=== PATIENT | female | born 1995 | race Caucasian/White ===

== ENCOUNTER 2018-09-11 04:45 | Emergency (ER) | payer OTHER ==
[~2018-09-11] VITALS: Wt 74.2 kg
[~2018-09-11 04:45] MED LIST: BACTDS PO; CEPH500C PO
--- NOTE | 2018-09-11 06:54 | ERD ---
ER Documentation Chief Complaint Chief Complaint states been smoking a lot of meth, c/o throat bleeding, "i need surgery" HPI This is a 23-year-old who states that she smoked too much meth last night. She states that she is with Kar baby. She says that there is some pus in her neck that needs to be cut out. She is very tangential but is denying suicidal or homicidal ideation. The patient states she smokes meth every day. She is asking me if I can get her something for her baby, like some juice. ROS All systems reviewed and are negative except as per history of present illness. Medications Home Meds Reported Medications Cephalexin* (Cephalexin*) 500 Mg Capsule, 500 MG PO TID, CAP 02/20/14 Sulfamethoxazole-Trimethoprim* (Bactrim* DS) 800-160 Mg Tab, 1 TAB PO BID, TAB 02/20/14 Allergies Allergies: Coded Allergies: No Known Allergy (Unverified , 09/11/18) PMhx/Soc Medical and Surgical Hx: pt denies Medical Hx, pt denies Surgical Hx Hx Alcohol Use: No Hx Substance Use: Yes (meth) Hx Tobacco Use: Yes Smoking Status: Never smoker FmHx Family History: No coronary disease Physical Exam Vitals Vital Signs Date Temp Pulse Resp B/P (MAP) Pulse Ox O2 O2 Flow FiO2 Time Delivery Rate 09/11/18 119 17 131/74 100 Room Air 07:32 (93) 09/11/18 114 17 132/74 100 Room Air 07:15 (93) 09/11/18 98.5 130 22 123/72 99 Room Air 06:01 (89) 09/11/18 98.5 128 22 131/71 99 Room Air 05:24 (91) 09/11/18 98.5 156 22 130/77 99 04:52 (94) Physical Exam Const: No acute distress, restless Head: Atraumatic Eyes: Normal Conjunctiva ENT: Normal External Ears, Nose and Mouth., Missing teeth Neck: Full range of motion. No meningismus. Resp: Clear to auscultation bilaterally Cardio: Tachycardia, no murmurs Abd: Soft, non tender, non distended. Normal bowel sounds Skin: No petechiae or rashes Back: No midline or flank tenderness Ext: No cyanosis, or edema Neur: Awake and alert Psych: Patient is psychotic and delusional Result Diagram: 4/21/19 0550 09/11/18 0550 Results 24 hrs Laboratory Tests Test 09/11/18 05:50 09/11/18 05:57 White Blood Count 16.4 10^3/ul Red Blood Count 4.35 10^6/ul Hemoglobin 12.3 g/dl Hematocrit 35.6 % Mean Corpuscular Volume 81.8 fl Mean Corpuscular Hemoglobin 28.3 pg Mean Corpuscular Hemoglobin Concent 34.6 g/dl Red Cell Distribution Width 13.3 % Platelet Count 292 10^3/UL Mean Platelet Volume 9.5 fl Immature Granulocytes % 0.500 % Neutrophils % 79.1 % Lymphocytes % 9.3 % Monocytes % 10.7 % Eosinophils % 0.1 % Basophils % 0.3 % Nucleated Red Blood Cells % 0.0 /100WBC Immature Granulocytes # 0.080 10^3/ul Neutrophils # 13.0 10^3/ul Lymphocytes # 1.5 10^3/ul Monocytes # 1.8 10^3/ul Eosinophils # 0.0 10^3/ul Basophils # 0.1 10^3/ul Nucleated Red Blood Cells # 0.0 10^3/ul Sodium Level 135 mmol/L Potassium Level 3.3 mmol/L Chloride Level 105 mmol/L Carbon Dioxide Level 19 mmol/L Anion Gap 11 Blood Urea Nitrogen 11 mg/dl Creatinine 0.75 mg/dl Est Glomerular Filtrat Rate mL/min > 60 mL/min Glucose Level 137 mg/dl Calcium Level 9.6 mg/dl Total Bilirubin 1.0 mg/dl Direct Bilirubin 0.00 mg/dl Indirect Bilirubin 1.0 mg/dl Aspartate Amino Transf (AST/SGOT) 51 IU/L Alanine Aminotransferase (ALT/SGPT) 31 IU/L Alkaline Phosphatase 65 IU/L Total Protein 7.7 g/dl Albumin 4.4 g/dl Globulin 3.30 g/dl Albumin/Globulin Ratio 1.33 Salicylates Level < 1.0 mg/dl Urine Opiates Screen Negative Acetaminophen Level < 10.0 ug/ml Urine Barbiturates Negative Urine Amphetamines Screen POSITIVE Urine Benzodiazepines Screen Negative Urine Cocaine Screen Negative Urine Cannabinoids Positive Ethyl Alcohol Level < 10.0 mg/dl POC Beta HCG, Qualitative NEGATIVE Current Medications Medications Dose Sig/Nika Start Time Status Last (Trade) Ordered Route PRN Stop Time Admin Dose Reason Admin Lorazepam 1 mg ONCE ONCE 09/11/18 DC 09/11/18 (Ativan) IV 07:30 07:36 09/11/18 07:31 Lorazepam 1 mg ONCE ONCE 09/11/18 DC 09/11/18 (Ativan) IV 10:00 09:59 09/11/18 10:01 Procedures/MDM Patient keeps squeezing her own neck because she thinks she has to squeeze some pus out of her throat. I will give her Ativan. I needed to repeat it again because she kept squeezing her neck Patient was evaluated by telemetry psychiatrist and will be put on a 5150 hold and transfer to inpatient psych Departure Diagnosis: Primary Impression: Psychosis Psychosis type: unspecified psychosis type Qualified Codes: F29 - Unspecified psychosis not due to a substance or known physiological condition Additional Impression: Methamphetamine abuse Condition: Stable JEREL SAENZ DO Sep 11, 2018 06:53
[2018-09-11] MEDS ORDERED: LORAZEPAM 2 MG INJ IV ONE ×2 (07:30→10:00)
--- NOTE | 2018-09-11 10:50 | PSY ---
Date/Time of Note Date/Time of Note DATE: 09/11/18 TIME: 10:43 Psychiatric Subjective Eval Consent Pt consented to telemedicine: Yes Subjective Evaluation Patient location: emergency Chief Complaint: states been smoking a lot of meth, c/o throat bleeding, "i need surgery" Reason for consult: gd History of present illness patient is a 23 yo female homeless with PPH Of methamphetamine abuse who came to the ER due to being disorganized and paranoid. she states that she has been smoking methamphetamine a lot and has been feeling that she has a cyst in her neck that needs to be removed with surgery and that she is even after test was explained to her to be negative. she denies any suicidal or homicidal ideation, she has multiple somatic delusions and paranoid delusions, she denies hearing voices, she is illogical with flight of ideas and pressured. she has been feeling depressed, hopeless and helpless, anxious and insomnia. Past psychiatric history denies Hospitalization: no Family History denies Medical history Problems Medical Problems: (1) Methamphetamine abuse Status: Acute (2) Psychosis Status: Acute (3) Sore throat Status: Acute Allergies: Coded Allergies: No Known Allergy (Unverified , 09/11/18) Substance Abuse Substance abuse history: Yes (methamphetamine ) Prior substance abuse treatmen: No Social History Marital status: single Level of education: hs DPA/Conservatorship: No Psychiatric Objective Eval Review of Systems: Review of Systems: Not Applicable Physical Examination: Physical Examination: Applicable Sleep: Insomnia Appetite: Decreased Energy: Decreased Interest: Decreased Mental Status Examination: Appearance: Poor Hygiene Eye Contact: Fair Psychomotor Activity: Agitated Behavior: Bizarre Speech: Pressured AFFECT: Anxious Mood: Anxious Though Process: Loose Thought Content: Delusions Suicidal: No Homicidal: No On 72 hour hold: No Insight: Impared Judgement: Impared Attention Span: Distractible Laboratory Results Laboratory Tests Test 09/11/18 05:50 09/11/18 05:57 White Blood Count 16.4 10^3/ul Red Blood Count 4.35 10^6/ul Hemoglobin 12.3 g/dl Hematocrit 35.6 % Mean Corpuscular Volume 81.8 fl Mean Corpuscular Hemoglobin 28.3 pg Mean Corpuscular Hemoglobin Concent 34.6 g/dl Red Cell Distribution Width 13.3 % Platelet Count 292 10^3/UL Mean Platelet Volume 9.5 fl Immature Granulocytes % 0.500 % Neutrophils % 79.1 % Lymphocytes % 9.3 % Monocytes % 10.7 % Eosinophils % 0.1 % Basophils % 0.3 % Nucleated Red Blood Cells % 0.0 /100WBC Immature Granulocytes # 0.080 10^3/ul Neutrophils # 13.0 10^3/ul Lymphocytes # 1.5 10^3/ul Monocytes # 1.8 10^3/ul Eosinophils # 0.0 10^3/ul Basophils # 0.1 10^3/ul Nucleated Red Blood Cells # 0.0 10^3/ul Sodium Level 135 mmol/L Potassium Level 3.3 mmol/L Chloride Level 105 mmol/L Carbon Dioxide Level 19 mmol/L Anion Gap 11 Blood Urea Nitrogen 11 mg/dl Creatinine 0.75 mg/dl Est Glomerular Filtrat Rate mL/min > 60 mL/min Glucose Level 137 mg/dl Calcium Level 9.6 mg/dl Total Bilirubin 1.0 mg/dl Direct Bilirubin 0.00 mg/dl Indirect Bilirubin 1.0 mg/dl Aspartate Amino Transf (AST/SGOT) 51 IU/L Alanine Aminotransferase (ALT/SGPT) 31 IU/L Alkaline Phosphatase 65 IU/L Total Protein 7.7 g/dl Albumin 4.4 g/dl Globulin 3.30 g/dl Albumin/Globulin Ratio 1.33 Salicylates Level < 1.0 mg/dl Urine Opiates Screen Negative Acetaminophen Level < 10.0 ug/ml Urine Barbiturates Negative Urine Amphetamines Screen POSITIVE Urine Benzodiazepines Screen Negative Urine Cocaine Screen Negative Urine Cannabinoids Positive Ethyl Alcohol Level < 10.0 mg/dl POC Beta HCG, Qualitative NEGATIVE Assessment and Plan Assessment/Diagnosis Diagnosis psychosis nos r/o methamphetamine induced psychosis Recommendation/Plan Medication Management haldol 10 mg po bid with ativan 2 mg po bid and benadryl 25 mg po bid for psychosis Discharge Disposition: Psychiatric inpatient Legal Status: Place involuntary hold PARAG MCDANIEL MD Sep 11, 2018 10:50
[2018-09-11] MEDS ORDERED: HALOPERIDOL 5 MG INJ ONE (12:11)
[2018-09-11] MEDS ORDERED: HALOPERIDOL 5 MG INJ IM ONE (12:30)
--- NOTE | 2018-09-12 06:36 | PSY ---
Date/Time of Note Date/Time of Note DATE: 09/12/18 TIME: 06:35 Psychiatric Subjective Eval Consent Pt consented to telemedicine: Yes Subjective Evaluation Patient location: emergency Chief Complaint: states been smoking a lot of meth, c/o throat bleeding, "i need surgery" Reason for consult: gd Hospitalization: no Medical history Problems Medical Problems: (1) Methamphetamine abuse Status: Acute (2) Psychosis Status: Acute (3) Sore throat Status: Acute Allergies: Coded Allergies: No Known Allergy (Unverified , 09/11/18) Social History Marital status: single Level of education: DPA/Conservatorship: No Psychiatric Objective Eval Mental Status Examination: Laboratory Results Laboratory Tests Test 09/11/18 05:50 09/11/18 05:57 White Blood Count 16.4 10^3/ul Red Blood Count 4.35 10^6/ul Hemoglobin 12.3 g/dl Hematocrit 35.6 % Mean Corpuscular Volume 81.8 fl Mean Corpuscular Hemoglobin 28.3 pg Mean Corpuscular Hemoglobin Concent 34.6 g/dl Red Cell Distribution Width 13.3 % Platelet Count 292 10^3/UL Mean Platelet Volume 9.5 fl Immature Granulocytes % 0.500 % Neutrophils % 79.1 % Lymphocytes % 9.3 % Monocytes % 10.7 % Eosinophils % 0.1 % Basophils % 0.3 % Nucleated Red Blood Cells % 0.0 /100WBC Immature Granulocytes # 0.080 10^3/ul Neutrophils # 13.0 10^3/ul Lymphocytes # 1.5 10^3/ul Monocytes # 1.8 10^3/ul Eosinophils # 0.0 10^3/ul Basophils # 0.1 10^3/ul Nucleated Red Blood Cells # 0.0 10^3/ul Sodium Level 135 mmol/L Potassium Level 3.3 mmol/L Chloride Level 105 mmol/L Carbon Dioxide Level 19 mmol/L Anion Gap 11 Blood Urea Nitrogen 11 mg/dl Creatinine 0.75 mg/dl Est Glomerular Filtrat Rate mL/min > 60 mL/min Glucose Level 137 mg/dl Calcium Level 9.6 mg/dl Total Bilirubin 1.0 mg/dl Direct Bilirubin 0.00 mg/dl Indirect Bilirubin 1.0 mg/dl Aspartate Amino Transf (AST/SGOT) 51 IU/L Alanine Aminotransferase (ALT/SGPT) 31 IU/L Alkaline Phosphatase 65 IU/L Total Protein 7.7 g/dl Albumin 4.4 g/dl Globulin 3.30 g/dl Albumin/Globulin Ratio 1.33 Salicylates Level < 1.0 mg/dl Urine Opiates Screen Negative Acetaminophen Level < 10.0 ug/ml Urine Barbiturates Negative Urine Amphetamines Screen POSITIVE Urine Benzodiazepines Screen Negative Urine Cocaine Screen Negative Urine Cannabinoids Positive Ethyl Alcohol Level < 10.0 mg/dl POC Beta HCG, Qualitative NEGATIVE Assessment and Plan Recommendation/Plan Discharge Disposition: Psychiatric inpatient Legal Status: Continue involuntary hold Assessment Additional comments: IDENTIFYING INFORMATION: 21 year old Female patient who is currently located at the hospital and for whom psychiatric consultation was requested. SOURCES OF INFORMATION: The patient who appears to be somewhat reliable and the medical records; the nursing staff. CHIEF COMPLAINT: "I used a lot of meth". HISTORY OF PRESENT ILLNESS: The patient was interviewed via telemedicine in the presence of and under the supervision of nursing staff of the hospital. The consent to conducting this interview via telemedicine was obtained by the nursing staff at the hospital. The patient was evaluated yesterday by Dr. Emerson. She exhibited psychotic symptoms on exam in the context of methamphetamine use. The patient was diagnosed with unspecified psychotic disorder. Haldol 10 mg by mouth twice a day, Ativan 2 mg by mouth twice a day, Benadryl 25 mg by mouth twice a day were initiated. A 5150 hold was recommended. The patient reports having AH, reports that she keeps thinking, thinking. Reports that she is not sure if she is . The patient denies having SI, HI. The patient denies using alcohol heavily or regularly. The patient reports using meth almost daily. Last use was 2 days ago. The patient denies using any other substances. In terms of past psychiatric history, the patient reports having a history of past psychiatric hospitalizations. The patient reports having a history of no past suicide attempts. Past medication trials: klonopin, geodon, abilify, zyprexa. PAST MEDICAL HISTORY: none. CURRENT MEDICATIONS: none. ALLERGIES TO MEDICATIONS: NKDA. LABORATORY TESTS: CBC with white blood cells of 16.4, hematocrit 35.6, CMP with potassium of 3.3, AST 51, UDS positive for amphetamines, cannabinoids, no alcohol detected, test negative. SOCIAL HISTORY: lives with mom, single, has no kids, not sure if she is . REVIEW OF SYSTEMS: Constitutional (e.g., fever, weight loss): negative; Eyes, Ears, Nose, Mouth, Throat: negative; Cardiovascular: negative; Respiratory: negative; Gastrointestinal: negative; Genitourinary: negative; Musculoskeletal: negative; Integumentary (skin and/or breast): negative; Neurological: negative; Psychiatric: as per HPI; Endocrine: negative; Hematologic/Lymphatic: negative; Allergic/Immunologic: negative. MENTAL STATUS EXAMINATION: General Appearance and Behavior: Calm, cooperative with the interview, pleasant with the current interviewer, makes fair eye contact, fairly groomed, no abnormal movements noted, Speech: Regular rate, regular rhythm, normal latency, normal volume, somewhat decreased amount, Flow of thought: sequential, logical, goal-directed at times, illogical at times, Content of thought: + auditory hallucinations, no visual hallucinations, + delusions, negative for suicidal ideation; no homicidal ideation, Mood: "depressed", Affect: dysthymic, reactive, Attention: normal based on the interview, Insight: fair, Judgment: poor, Memory: normal based on the interview, Sensorium: alert and oriented to person, place and date. ASSESSMENT: The patient's presentation and history are consistent with the diagnosis of unspecified psychotic disorder, stimulant use disorder. The patient presents with an exacerbation of psychosis in the context of medica tion noncompliance, psychosocial stressors and substance use. PLAN: - Medication management: Would start risperidone 1 mg by mouth at bedtime. Would start haloperidol 5 mg IM PRN severe agitation q4 hours. Would start diphenhydramine 50 mg IM PRN severe agitation q4 hours. Would start lorazepam 2 mg IM PRN severe agitation q4 hours Will defer to the inpatient psychiatry team for other medication changes. - Labs: No other laboratory tests are needed at this time. - Psychotherapy: Provided supportive psychotherapy and psychoeducation. - Disposition: Would recommend involuntary admission to the inpatient psychiatric unit given the severity of the patient's psychiatric condition and the fact that the patient is an imminent danger to self and/or others so long as the patient has been cleared medically for admission to psychiatry. Inpatient psychiatric admission is at this time the least restrictive environment where the patient can receive the psychiatric care that is needed. Would place on suicide preca utions. The patient fulfills criteria for being placed on an involuntary hold for being gravely disabled due to a psychiatric disorder. I called the emergency room physician who is taking care of the patient to discuss about the above plan but the emergency room physician is not available at this time. ISAC MCKEON MD Sep 12, 2018 06:36
[2018-09-12] MEDS ORDERED: RISPERIDONE 1 MG TAB PO SCH (21:00)
--- NOTE | 2018-09-12 23:16 | PSY ---
Date/Time of Note Date/Time of Note DATE: 09/12/18 TIME: 23:04 Psychiatric Subjective Eval Consent Pt consented to telemedicine: Yes Subjective Evaluation Patient location: emergency Chief Complaint: states been smoking a lot of meth, c/o throat bleeding, "i need surgery" Reason for consult: gd Hospitalization: no Medical history Problems Medical Problems: (1) Methamphetamine abuse Status: Acute (2) Psychosis Status: Acute (3) Sore throat Status: Acute Allergies: Coded Allergies: No Known Allergy (Unverified , 09/11/18) Social History Marital status: single Level of education: DPA/Conservatorship: No Psychiatric Objective Eval Mental Status Examination: Laboratory Results Laboratory Tests Test 09/11/18 05:50 09/11/18 05:57 09/12/18 15:45 White Blood Count 16.4 10^3/ul Red Blood Count 4.35 10^6/ul Hemoglobin 12.3 g/dl Hematocrit 35.6 % Mean Corpuscular Volume 81.8 fl Mean Corpuscular Hemoglobin 28.3 pg Mean Corpuscular 34.6 g/dl Hemoglobin Concent Red Cell Distribution Width 13.3 % Platelet Count 292 10^3/UL Mean Platelet Volume 9.5 fl Immature Granulocytes % 0.500 % Neutrophils % 79.1 % Lymphocytes % 9.3 % Monocytes % 10.7 % Eosinophils % 0.1 % Basophils % 0.3 % Nucleated Red Blood Cells % 0.0 /100WBC Immature Granulocytes # 0.080 10^3/ul Neutrophils # 13.0 10^3/ul Lymphocytes # 1.5 10^3/ul Monocytes # 1.8 10^3/ul Eosinophils # 0.0 10^3/ul Basophils # 0.1 10^3/ul Nucleated Red Blood Cells # 0.0 10^3/ul Sodium Level 135 mmol/L Potassium Level 3.3 mmol/L Chloride Level 105 mmol/L Carbon Dioxide Level 19 mmol/L Anion Gap 11 Blood Urea Nitrogen 11 mg/dl Creatinine 0.75 mg/dl Est Glomerular Filtrat > 60 mL/min Rate mL/min Glucose Level 137 mg/dl Calcium Level 9.6 mg/dl Total Bilirubin 1.0 mg/dl Direct Bilirubin 0.00 mg/dl Indirect Bilirubin 1.0 mg/dl Aspartate Amino 51 IU/L Transf (AST/SGOT) Alanine 31 IU/L Aminotransferase (ALT/SGPT) Alkaline Phosphatase 65 IU/L Total Protein 7.7 g/dl Albumin 4.4 g/dl Globulin 3.30 g/dl Albumin/Globulin Ratio 1.33 Salicylates Level < 1.0 mg/dl Urine Opiates Screen Negative Acetaminophen Level < 10.0 ug/ml Urine Barbiturates Negative Urine Amphetamines Screen POSITIVE Urine Benzodiazepines Screen Negative Urine Cocaine Screen Negative Urine Cannabinoids Positive Ethyl Alcohol Level < 10.0 mg/dl POC Beta HCG, Qualitative NEGATIVE Urine Color COLORLESS Urine Clarity CLEAR Urine pH 7.0 Urine Specific Bim 1.001 Urine Ketones NEGATIVE mg/dL Urine Nitrite NEGATIVE mg/dL Urine Bilirubin NEGATIVE mg/dL Urine Urobilinogen NEGATIVE mg/dL Urine Leukocyte Esterase NEGATIVE Alex/ul Urine Hemoglobin NEGATIVE mg/dL Urine Glucose NEGATIVE mg/dL Urine Total Protein NEGATIVE mg/dl Assessment and Plan Recommendation/Plan Discharge Disposition: Community (home) Legal Status: Voluntary Assessment Additional comments: IDENTIFYING INFORMATION: 23 year old Female patient who is currently located at the hospital and for whom psychiatric consultation was requested. SOURCES OF INFORMATION: The patient who appears to be reliable and the medical records; the nursing staff. Mom, Ms. Kaya Salguero, was called at [phone], at 11:13 pm. She appears to be reliable. CHIEF COMPLAINT: "the meth is coming out of my system". HISTORY OF PRESENT ILLNESS: The patient was interviewed via telemedicine in the presence of and under the supervision of nursing staff of the hospital. The consent to conducting this interview via telemedicine was obtained by the nursing staff at the hospital. VISHNU Cedeno reports that the patient presented with psychotic sxs in the context of meth use. The patient reports feeling better. Denies thinking that she is at this time, explaining that she was confused because of the drug use. The patient denies having AH, VH, delusions, SI, HI, depressed, anhedonia, insomnia, excessive guilt, low appetite. Mom reports that the patient used meth. Mom feels comfortable with the patient being discharged today. She has had problems with meth, as well as with her mental health. Mom reports that a few weeks ago the patient made some suicidal statements, went to the [facility], and was later on discharged. She is not aware of the patient making suicidal statements over the past few days. The patient denies using alcohol heavily or regularly. The patient reports using meth daily. Reports that she will stop using meth, would like to go to Rehab. The patient denies using any other substances. In terms of past psychiatric history, the patient reports having a history of past psychiatric hospitalizations. The patient reports having a history of no suicide attempts. PAST MEDICAL HISTORY: None. CURRENT MEDICATIONS: none. ALLERGIES TO MEDICATIONS: NKDA. LABORATORY TESTS: CBC with white blood cells of 16.4, hematocrit 35.6, CMP with potassium of 3.3, AST 51, UDS positive for amphetamines, cannabinoids, no alcohol detected, test negative. SOCIAL HISTORY: lives with mom, single, has no kids, not employed; no access to firearms. REVIEW OF SYSTEMS: Constitutional (e.g., fever, weight loss): negative; Eyes, Ears, Nose, Mouth, Throat: negative; Cardiovascular: negative; Respiratory: negative; Gastrointestinal: negative; Genitourinary: negative; Musculoskeletal: negative; Integumentary (skin and/or breast): negative; Neurological: negative; Psychiatric: as per HPI; Endocrine: negative; Hematologic/Lymphatic: negative; Allergic/Immunologic: negative. MENTAL STATUS EXAMINATION: General Appearance and Behavior: Calm, cooperative with the interview, pleasant with the current interviewer, makes fair eye contact, fairly groomed, no abnormal movements noted, Speech: Regular rate, regular rhythm, normal latency, normal volume, somewhat decreased amount, Flow of thought: sequential, logical, goal-directed, Content of thought: no auditory hallucinations, no visual hallucinations, no delusions, negative for suicidal ideation; no homicidal ideation, Mood: "better", Affect: euthymic, reactive, Attention: normal based on the interview, Insight: fair, Judgment: poor, Memory: normal based on the interview, Sensorium: alert and oriented to person, place and date. ASSESSMENT: The patient's presentation and history are consistent with the diagnosis of unspecified psychotic disorder, stimulant use disorder. The patient presents with psychotic symptoms with improved promptly after the patient abstained from meth and was started on risperidone. The patient has tolerated the risperidone fine with no side effects. PLAN: - Medication management: Would continue risperidone 1 mg po qhs. - Labs: No other laboratory tests are needed at this time. - Psychotherapy: Provided supportive psychotherapy and psychoeducation. - Disposition: The patient is appropriate for the outpatient level of care at this time from a psychiatric perspective. The patient is not an imminent danger to self or others. The patient is motivated for outpatient treatment. The patient agrees to be compliant with outpatient follow-up appointments and pharmacotherapy as indicated. Would recommend that the patient follows up with a psychiatrist. Resources for outpatient follow-up will be provided by the hospital staff. The patient's risk for completed suicide is high in comparison to the general population. Risk factors include substance use disorder, psychotic disorder, age. Protective factors include race, good social support, absence of schizophrenia, BPAD, MDD, anxiety disorder, no access to firearms, no h/o past SAs, chronic medical problems. The patient's risk for completed suicide cannot be modified more effectively with inpatient admission at this time. The patient is not an imminent danger to self or others at this time and does not meet the legal criteria for involuntary admission. Risks, benefits, alternatives were discussed and the patient provided informed consent to proceed with the above plan. Discussed about the above plan with Dr. Weaver. ISAC MCKEON MD Sep 12, 2018 23:15
[2018-09-12] MEDS ORDERED: RISP1TAB3 PO (23:41)
--- NOTE | 2018-09-12 23:49 | EN ---
Date/Time of Note Date/Time of Note DATE: 09/12/18 TIME: 23:49 ER Progress Note Discussed case with telemetry psychiatry. Feels that the patient stable for outpatient management along as long as resources are given. Recommend risperidone 1 mg nightly. Prescription given to patient. Reassessed patient and I agree with telemetry psychiatry. Patient will be discharged with resources. WALKER DORAN. Sep 12, 2018 23:49
[2018-09-13 00:02] VITALS: BP 99/53; PULSE 99; RESP 16
== END 2018-09-13 00:08 | disposition home or self-care (01) ==
LOC: E/R 04:45
DX: F15.159 Other stimulant abuse with stimulant-induced psychotic disorder, unspecified (principal); R68.84 Jaw pain; Z87.891 Personal history of nicotine dependence
CPT/HCPCS: 36415; 80053; 80307; 81003; 81025; 85025; 93005; 96372; 96374; 96376; J1630; J2060; Z7502; Z7610